=== PATIENT | female | born 1955 | race Caucasian/White ===

== ENCOUNTER 2018-04-26 18:18 | Observation (INO) | payer MEDICAID ==
[2018-04-26 19:36] LABS: ADD MAN DIFF? NO
[2018-04-26 19:38] LABS: WHITE BLOOD COUNT 7.4 10^3/ul (4.8-10.8)
[2018-04-26 19:38] LABS: BASOPHILS % 0.5 % (0.0-2.0); EOSINOPHILS # 0.2 10^3/ul (0.0-0.5); HEMATOCRIT 38.9 % (37.0-47.0); IMMATURE GRANS #M 0.01 10^3/ul; IMMATURE GRANS % (M) 0.1 %; LYMPHOCYTES # 2.9 10^3/ul (0.8-2.9); LYMPHOCYTES % 39.2 % (15.0-51.0); MEAN CORPUSCULAR HEMOGLOBIN 29.7 pg (29.0-33.0); MEAN CORPUSCULAR HGB CONC 33.4 g/dl (32.0-37.0); MEAN PLATELET VOLUME 10.2 fl (7.4-10.4); MONOCYTE # 0.7 10^3/ul (0.3-0.9); NEUTROPHIL # 3.6 10^3/ul (1.6-7.5); NEUTROPHILS % 49.2 % (39.0-77.0); PLATELET COUNT 280 10^3/UL (140-415); RED BLOOD COUNT 4.37 10^6/ul (4.20-5.40); RED CELL DISTRIBUTION WIDTH 13.5 % (11.5-14.5)
[2018-04-26] MEDS: ASPIRIN 325 MG TAB PO (19:43)
[2018-04-26] MEDS: NITROGLYCERIN 2% 1 GM OINT PKT TD (19:44)
[2018-04-26 19:58] LABS: ALANINE AMINOTRANSFERASE 44 IU/L (13-69); ALBUMIN 4.7 g/dl (3.3-4.9); ALKALINE PHOSPHATASE 93 IU/L (42-121); ANION GAP 15 (8-16); ASPARTATE AMINO TRANSFERASE 77 IU/L (15-46); BILIRUBIN,INDIRECT 0.3 mg/dl (0-1.1); BILIRUBIN,TOTAL 0.3 mg/dl (0.2-1.3); BLOOD UREA NITROGEN 12 mg/dl (7-20); CALCIUM 9.9 mg/dl (8.4-10.2); CARBON DIOXIDE 27 mmol/L (21-31); CHLORIDE 103 mmol/L (97-110); CREATININE 0.67 mg/dl (0.44-1.00); GLUCOSE 103 mg/dl (70-220); POTASSIUM 4.2 mmol/L (3.5-5.1); SODIUM 141 mmol/L (135-144); TOTAL PROTEIN 8.3 g/dl (6.1-8.1)
[2018-04-26 20:10] LABS: TROPONIN-I < 0.010 ng/ml (0.000-0.120)
[2018-04-26] MEDS ORDERED: SOD CHLORIDE 0.9% 1,000 ML IV (21:07)
[2018-04-26] MEDS ORDERED: ACETAMINOPHEN 325 MG TAB PO (21:30)
[2018-04-26] MEDS ORDERED: ONDANSETRON 4 MG INJ IV (21:30)
[2018-04-27 06:14] LABS: ADD MAN DIFF? NO
[2018-04-27 06:18] LABS: BASOPHILS % 0.6 % (0.0-2.0); EOSINOPHILS # 0.2 10^3/ul (0.0-0.5); EOSINOPHILS % 2.1 % (0.0-7.0); HEMATOCRIT 38.4 % (37.0-47.0); HEMOGLOBIN 12.3 g/dl (12.0-16.0); IMMATURE GRANS #M 0.01 10^3/ul; IMMATURE GRANS % (M) 0.1 %; LYMPHOCYTES # 2.3 10^3/ul (0.8-2.9); LYMPHOCYTES % 32.4 % (15.0-51.0); MEAN CORPUSCULAR HEMOGLOBIN 29.6 pg (29.0-33.0); MEAN CORPUSCULAR VOLUME 92.3 fl (82.0-101.0); MONOCYTE # 0.6 10^3/ul (0.3-0.9); MONOCYTES % 8.3 % (0.0-11.0); NEUTROPHILS % 56.5 % (39.0-77.0); PLATELET COUNT 250 10^3/UL (140-415); RED BLOOD COUNT 4.16 10^6/ul (4.20-5.40); RED CELL DISTRIBUTION WIDTH 13.7 % (11.5-14.5)
[2018-04-27 06:42] LABS: POSITIVE DIFF @See below
[2018-04-27 06:56] LABS: CK-MB 0.84 ng/ml (0.0-2.4); TROPONIN-I < 0.010 ng/ml (0.000-0.120)
[2018-04-27 07:09] LABS: ALANINE AMINOTRANSFERASE 41 IU/L (13-69); ALBUMIN/GLOBULIN RATIO 1.02; ALKALINE PHOSPHATASE 84 IU/L (42-121); ANION GAP 14 (8-16); ASPARTATE AMINO TRANSFERASE 74 IU/L (15-46); BILIRUBIN,INDIRECT 0.5 mg/dl (0-1.1); BILIRUBIN,TOTAL 0.5 mg/dl (0.2-1.3); BLOOD UREA NITROGEN 11 mg/dl (7-20); CALCIUM 9.3 mg/dl (8.4-10.2); CARBON DIOXIDE 22 mmol/L (21-31); CHLORIDE 107 mmol/L (97-110); CHOL/HDL RATIO 4.5 RATIO; CHOLESTEROL 225 mg/dl (100-200); CK INDEX 0.5; CREATINE KINASE 159 IU/L (23-200); CREATININE 0.57 mg/dl (0.44-1.00); GLUCOSE 100 mg/dl (70-220); HDL CHOLESTEROL 50 mg/dl (35-98); LDL CHOLESTEROL,CALCULATED 152 mg/dl; POTASSIUM 4.5 mmol/L (3.5-5.1); SODIUM 138 mmol/L (135-144); TOTAL PROTEIN 7.9 g/dl (6.1-8.1); TRIGLYCERIDES 113 mg/dl (0-149)
[2018-04-27] MEDS: ASPIRIN (EC) 81 MG TAB PO (08:14)
[2018-04-27] MEDS ORDERED: ATORVASTATIN 10 MG TAB PO (21:00)
[2018-04-28] MEDS ORDERED: PANTOPRAZOLE (EC) 40 MG TAB PO (06:00)
== END 2018-04-27 18:16 | disposition home or self-care (01) ==
LOC: 6WM 21:08 → E/R 18:18
DX: R07.89 Other chest pain (principal); I10 Essential (primary) hypertension; E78.00 Pure hypercholesterolemia, unspecified; E78.5 Hyperlipidemia, unspecified; Z79.82 Long term (current) use of aspirin
CPT/HCPCS: 36415; 71045; 80053; 80061; 82550; 82553; 83036; 84443; 84484; 85025; 93005; 93306; 99285-25; G0378